=== PATIENT | male | born 1950 | race Caucasian/White ===

== ENCOUNTER 2019-02-11 07:16 | Outpatient (CLI) | payer MEDICARE | END 2019-02-11 23:59 | disposition home or self-care (01) | LOC: EDBD → ROC 07:16 | PROVIDERS: ATTEND Radiology Radiation Oncology | DX: C61 Malignant neoplasm of prostate (principal); Z88.0 Allergy status to penicillin; Z79.899 Other long term (current) drug therapy | CPT/HCPCS: G0463 ==